=== PATIENT | male | born 1950 | race Hispanic/Latino ===

== ENCOUNTER 2019-06-09 06:00 | Observation (INO) | payer MEDICARE ==
[2019-06-09] MEDS ORDERED: ECOTRIN PO NR (06:42)
[2019-06-09 07:20] LABS: Basophils # (Auto) 0.1 K/mm3 (0.0-0.1); Basophils % (Auto) 1.4 % (0.0-1.8); Eosinophils # (Auto) 0.2 K/mm3 (0.0-0.4); Eosinophils % (Auto) 4.3 % (0.0-4.3); Hematocrit 42.3 % (35.5-45.6); Hemoglobin 14.2 gm/dl (11.8-15.2); Lymphocytes # (Auto) 0.9 K/mm3 (1.2-5.4); Lymphocytes % (Auto) 16.4 % (13.4-35.0); Mean Corpuscular HGB Conc 34 % (32-34); Mean Corpuscular Volume 86 fl (84-94); Monocytes # (Auto) 0.9 K/mm3 (0.0-0.8); Monocytes % (Auto) 15.9 % (0.0-7.3); Platelet Count 224 K/mm3 (140-440); Red Blood Count 4.94 M/mm3 (3.65-5.03); Red Cell Distribution Width 16.4 % (13.2-15.2)
[2019-06-09 07:33] LABS: BUN/Creatinine Ratio 13; Blood Urea Nitrogen 13 mg/dL (9-20); Calcium 9.1 mg/dL (8.4-10.2); Hemolysis Index 7
[2019-06-09 07:48] LABS: INR 1.07 (0.87-1.13)
[2019-06-09] MEDS: NACL 0.9% 500 ML 500 ML IV SCH ×3 (08:08→10:12)
[2019-06-09] MEDS: SUBLIMAZE ONE ×2 (09:57→10:13)
[2019-06-09] MEDS: XYLOCAINE 2% INFILTRATI ONE ×2 (09:57→10:13)
[2019-06-09] MEDS: VERSED ONE ×2 (09:57→10:13)
[2019-06-09] MEDS: HEPARIN/NS 5000 UNIT/500ML(CATH LAB) 1,000 ML IR ONE ×2 (09:58→10:12)
[2019-06-09] MEDS: HEPARIN 10,000 UNITS/10 ML ONE ×4 (09:58→11:31)
[2019-06-09] MEDS: CALAN ONE ×3 (09:58→10:15)
[2019-06-09] MEDS: NITROGLYCERIN SYRINGE 3 ML ONE ×2 (09:59→10:15)
[2019-06-09] MEDS ORDERED: AGGRASTAT DRIP (12.5 MG/250 ML) 12,500 MCG/250 ML BAG IV ONE (11:05)
[2019-06-09] MEDS ORDERED: BRILINTA ONE (11:16)
[2019-06-09] MEDS ORDERED: ALUM-MAG HYDROX-SIMETH 200-200-20MG/5ML ONE (11:20)
[2019-06-09] MEDS ORDERED: ULTRAM PO PRN (11:38)
[2019-06-09] MEDS ORDERED: SENOKOT PO PRN (11:38)
[2019-06-09] MEDS ORDERED: ZOFRAN IV PRN (11:38)
--- NOTE | 2019-06-09 11:43 | Cardiac Catherization Report ---
CARDIAC CATHETERIZATION AND CORONARY ANGIOPLASTY REPORT REASON FOR PROCEDURE: The patient is a 68-year-old man referred for outpatient cardiac catheterization procedure. Indication was abnormal thallium stress test, done for preoperative upper GI endoscopy and esophageal dilatation. The patient has an extensive history of coronary artery disease and multivessel stents. PROCEDURE PROCEDURES: 1. Left heart catheterization. 2. Selective left and right coronary angiography. 3. Left ventricle angiography. 4. Coronary angioplasty and stenting of the mid left anterior descending artery. 5. Sedation start time 10:12, End 11:00. The patient was prepped and draped in a sterile fashion after informed consent. The right radial cath site was prepped and draped after a negative Nick's test. The right radial artery was entered using Seldinger technique followed by placement of a 6-Bulgarian hydrophilic sheath. Routine radial cocktail was administered via this sheath. A #3.5 left Ross was used for left coronary angiography. A #4 right Ross was used for right coronary angiography. The right Ross was used for left ventricular angiography. The angiograms were reviewed. Left ventricular end-diastolic pressure was 23, following coronary angiography. Ascending aortic pressure 139/64. There was no significant pressure gradient on pullback across the aortic valve. CORONARY ANGIOGRAPHY: There was moderate diffuse coronary calcification. The left main coronary artery contained mild luminal irregularities. The left anterior descending artery contained mild ostial narrowing. This was followed by a longer stent in its proximal segment. The proximal LAD stent was patent with only mild in-stent restenosis. Following that, the mid LAD was notable for a long, de alvaro greater than 95% stenosis. Following de alvaro disease, we found another short stent in the distal LAD before the apex. Otherwise, there was diffuse mild atherosclerosis of the LAD and diagonal branches. The circumflex artery was also notable for a stent in its mid obtuse marginal. This stent was widely patent, otherwise mild luminal irregularities in the circumflex system. The right coronary artery was dominant. On fluoroscopy, stents were also visible in the proximal and mid vessel. However, this vessel was completely occluded at its ostium. This was a chronic total occlusion. The distal right coronary branches were fed by collaterals from the left coronary system. Left ventricular systolic function was at lower limits of normal, ejection fraction of 50-55%. CORONARY ANGIOPLASTY: After review of the angiograms, we recommended ad hoc coronary intervention to the mid left anterior descending artery. We selected a #2 left Amplatz guiding catheter and advanced to the left coronary ostium. A 0.014 inch Ad Writer 50 guidewire was then directed into the LAD across the lesional segment. Following this, predilatation angioplasty using a 3.0 mm balloon catheter. We then deployed a 3.0 x 23 mm Xience drug-eluting stent, covering the entire lesional segment. The stent was deployed to optimal pressures. Following stenting, there was an excellent angiographic result at the treated site, 0 residual stenosis, and MY 3 flow was maintained down the vessel. A small caliber, mid diagonal branch that originated from the lesional segment demonstrated moderate ostial stenosis following the mid LAD intervention. The patient tolerated the procedure well and there were no complications. The catheters and the wires were removed, sheath removed, and hemostasis achieved using a TR band. CONCLUSION: 1. Severe, 3-vessel coronary artery disease. 2. Patent prior stents in the proximal and distal segments of the LAD. 3. Severe, de alvaro, greater than 95% stenosis of the mid LAD, in between the stented segments. 4. Patent mid circumflex artery stent. 5. Chronic total occlusion of the right coronary artery at the ostium, distal vessel filled by left to right collaterals. 6. Left ventricular systolic function at the lower limits of normal, ejection fraction 50-55%. 7. Successful angioplasty and stenting of the mid left anterior descending, excellent angiographic result following deployment of a 3.0 x 23 mm Xience drug-eluting stents. [facility]# [id number] EZEQUIEL/BRITTANY
--- NOTE | 2019-06-09 11:46 | Event Note ---
Date: 06/09/19 Outpatient cardiac cath followed by PCI of mid LAD-see dictated report for details. Admit for overnight post PCI observation, discharge tomorrow morning after hydration and Aggrastat protocol.
[2019-06-09] MEDS ORDERED: AGGRASTAT DRIP (12.5 MG/250 ML) 12,500 MCG/250 ML BAG IV SCH (12:00)
[2019-06-09] MEDS ORDERED: NACL 0.9% 1000 ML 1,000 ML IV SCH (12:00)
[2019-06-09] MEDS ORDERED: IMDUR PO SCH (12:00)
[2019-06-09] MEDS ORDERED: SYNTHROID PO SCH (12:30)
[2019-06-09] MEDS ORDERED: NACL 0.9% 1000 ML 1,000 ML ONE (13:10)
[2019-06-09] MEDS: IMDUR PO SCH (15:45)
[2019-06-09] MEDS: SYNTHROID PO SCH (15:45)
[2019-06-09] MEDS: BRILINTA PO SCH (21:27)
[2019-06-09] MEDS ORDERED: AMBIEN PO PRN (22:00)
[2019-06-09] MEDS ORDERED: MORPHINE IV ONE (22:00)
[2019-06-10 05:52] LABS: Basophils # (Auto) 0.1 K/mm3 (0.0-0.1); Basophils % (Auto) 0.8 % (0.0-1.8); Eosinophils # (Auto) 0.2 K/mm3 (0.0-0.4); Eosinophils % (Auto) 2.9 % (0.0-4.3); Hematocrit 40.2 % (35.5-45.6); Hemoglobin 13.6 gm/dl (11.8-15.2); Lymphocytes # (Auto) 0.7 K/mm3 (1.2-5.4); Lymphocytes % (Auto) 8.4 % (13.4-35.0); Mean Corpuscular HGB Conc 34 % (32-34); Mean Corpuscular Volume 85 fl (84-94); Monocytes % (Auto) 12.6 % (0.0-7.3); Platelet Count 179 K/mm3 (140-440); Red Blood Count 4.75 M/mm3 (3.65-5.03); Red Cell Distribution Width 16.4 % (13.2-15.2)
[2019-06-10] MEDS: SYNTHROID PO SCH (05:54)
[2019-06-10 06:06] LABS: Creatine Kinase MB 1.6 ng/mL (0.0-4.0)
[2019-06-10 06:08] LABS: BUN/Creatinine Ratio 11; Blood Urea Nitrogen 10 mg/dL (9-20); Calcium 8.6 mg/dL (8.4-10.2); Hemolysis Index 104
--- NOTE | 2019-06-10 08:09 | XRay Report ---
CHEST 1 VIEW INDICATION: post pci. COMPARISON: None FINDINGS: Support devices: A right [id number]-m-[id number] terminates near the cavoatrial junction. 2-lead pacemaker diana ce is in position. Heart: Within normal limits. Lungs/Pleura: No acute air space or interstitial disease. No pneumothorax is visualized. Additional findings: None. IMPRESSION: No acute findings. Signer Name: Karri Bates Jr, MD Signed: 06/10/2019 8:05 AM Workstation Name: [id number]
[2019-06-10] MEDS: IMDUR PO SCH (09:13)
[2019-06-10] MEDS: BRILINTA PO SCH (09:13)
--- NOTE | 2019-06-10 09:44 | Short Stay Summary ---
Short Stay Documentation Date of service: 06/10/19 - History H&P: obtained from office - Allergies and Medications Current Medications: Allergies naproxen [From Aleve] Adverse Reaction (Verified 06/09/19 06:41) Nausea Home Medications Medication Instructions Recorded Confirmed Last Taken Type Aspirin EC 81 mg PO DAILY 06/09/19 06/09/19 06/08/19 History Ibuprofen [Motrin] 400 mg PO Q8H PRN 06/09/19 06/09/19 2 Months Ago History ~04/09/19 Levothyroxine [Synthroid] 75 mcg PO DAILY 06/09/19 06/09/19 06/08/19 History Megestrol [Megace] 400 mg PO DAILY 06/09/19 06/09/19 05/27/19 History Metoprolol [Lopressor TAB] 12.5 mg PO DAILY 06/09/19 06/09/19 06/08/19 History Active Medications Aspirin (Halfprin Ec) 81 mg PO DAILY [facility] Last Admin: 06/10/19 09:12 Dose: 81 mg Documented by: Isosorbide Mononitrate (Imdur) 30 mg PO QDAY [facility] Last Admin: 06/10/19 09:13 Dose: 30 mg Documented by: Levothyroxine Sodium (Synthroid) 75 mcg PO DAILY@0600 [facility] Last Admin: 06/10/19 05:54 Dose: 75 mcg Documented by: Metoprolol Tartrate (Lopressor) 12.5 mg PO DAILY [facility] Last Admin: 06/10/19 09:12 Dose: 12.5 mg Documented by: Ondansetron HCl (Zofran) 4 mg IV Q8H PRN PRN Reason: N/V unrelieved by Luke Last Admin: 06/10/19 08:25 Dose: 4 mg Documented by: Senna (Senokot) 8.6 mg PO Q12H PRN PRN Reason: Laxative Effect Ticagrelor (Brilinta) 90 mg PO BID [facility] Last Admin: 06/10/19 09:13 Dose: 90 mg Documented by: Tramadol HCl (Ultram) 50 mg PO Q4H PRN PRN Reason: Pain, Mild (1-3) Last Admin: 06/09/19 19:56 Dose: 50 mg Documented by: Zolpidem Tartrate (Ambien) 5 mg PO QHS PRN PRN Reason: Sleep Last Admin: 06/10/19 01:11 Dose: 5 mg Documented by: - Physical exam General appearance: no acute distress HEENT: PERRLA Lungs: Clear to auscultation Heart: Regular rate, Normal S1, Normal S2 - Brief post op/procedure progress note Procedure: PCI of mid LAD using Xience drug eluting stents - Hospital course Hospital course: Stable overnight observation. - Disposition Condition at discharge: Good Disposition: DC-01 TO HOME OR SELFCARE Short Stay Discharge Plan Activity: advance as tolerated Weight Bearing Status: Full Weight Bearing Diet: low fat, low cholesterol, low salt Wound: keep clean and dry Follow up with: YOGESH ESPINOZA MD [Primary Care Provider] - 7 Days SUSANNA DING MD [Staff Physician] - 7 Days Forms: Work/School Excuse Out Patient Prescriptions: Ticagrelor [Brilinta] 90 mg PO BID #60 tablet ISOSORBIDE MONOnitrate [Imdur ER] 30 mg PO QDAY #30 tablet
[2019-06-10] MEDS ORDERED: HALFPRIN EC PO SCH (10:00)
[2019-06-10] MEDS ORDERED: LOPRESSOR PO SCH (10:00)
[2019-06-10 11:01] VITALS: BP 132/57
== END 2019-06-10 16:00 | disposition home or self-care (01) ==
LOC: CATHLABREC 06:00 → 4A 11:38
PROVIDERS: ADMIT Internal Medicine Cardiovascular Disease; ATTEND Internal Medicine Cardiovascular Disease
DX: I25.119 Atherosclerotic heart disease of native coronary artery with unspecified angina pectoris (principal); Z79.899 Other long term (current) drug therapy; Z79.01 Long term (current) use of anticoagulants
CPT/HCPCS: 36415; 71045; 80048; 82550; 82553; 84484; 85025; 85347; 85610; 85730; 93005; 93010; 93458; 96365; 96366; 96375; C1725; C1769; C1874; C1887; C1894; C9600; G0378; J1644; J2250; J2270; J2405; J3010; J3246; J7030; J7040; 92928; Q9967

== ENCOUNTER 2021-07-10 17:32 | Emergency (ER) | payer MEDICARE ==
[2021-07-10 17:59] VITALS: BP 105/53
== END 2021-07-10 23:59 | disposition left against medical advice (07) ==
LOC: ED 17:32
DX: J02.9 Acute pharyngitis, unspecified (principal); Z53.21 Procedure and treatment not carried out due to patient leaving prior to being seen by health care provider